=== PATIENT | female | born 1960 | race Caucasian/White ===

== ENCOUNTER 2017-01-10 19:59 | Observation (INO) | payer OTHER ==
[~2017-01-10] VITALS: Ht 167.6 cm; Wt 93.7 kg
[2017-01-10 20:08] VITALS: BP 120/49; PULSE 63; RESP 15; O2SAT 98
[2017-01-10 20:12] LABS: BASOPHILS % (AUTO) 0.7 % (0-3); EOSINOPHILS % (AUTO) 1.3 % (0-5); MONOCYTES % (AUTO) 8.2 % (4-12); Mean Corpuscular Hemoglobin 31.4 pg (27.0-35.0); Mean Corpuscular Volume 91.6 fL (81-100); NEUTROPHILS % (AUTO) 43.7 % (40-74); Platelet Count 258 bil/L (150-400)
--- NOTE | 2017-01-10 20:19 | ED.REPORT ---
HPI-Abd Pain F 40 and Over Date of Service Jan 10, 2017 ED Provider: Bhavik Morales DO A 56 year old female with a history of diabetes, hypertension and NSTEMI x2 is brought to the ED via EMS due to chest pain. 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 The pain is an intermittent, gradual onset 4/ 10 pain that is described as "sharp" and localized on the left side radiating into her left arm and midsternal area. Each episode of pain lasts less than a minute. The pt had two nitro at work and was given three more en route, in addition to aspirin. This decreased her pain to 1/10. Nursing Notes Stated Complaint: CHEST PAIN Chief Complaint: Chest Pain Nursing Notes Reviewed: Yes Allergies: Coded Allergies: ondansetron HCl (Verified Adverse Reaction, Unknown, states makes her vomit, 01/10/17) Uncoded Allergies: PENICILLIN (Allergy, Unknown, 01/10/17) General Time Seen by MD: 20:19 Chief Complaint Other (Chest pain) Hx Obtained From: Patient, EMS Arrived By: Ambulance Sudden in Onset?: No Onset Occurred: 1 - 4 hours ago Symptom Duration: Intermittent Recent Healthcare: No recent doctor visit, No recent hospitalization Similar Sx Previous: Yes Past Medical History Past Medical History NSTEMI x2 diabetes Reports: Hypertension Past Surgical History cardiac catheter Smoking History Never Smoker Ambulatory Status Independent Review of Systems Respiratory: Denies: Non-productive cough, Shortness of breath Cardiovascular: Reports: Chest pain GI: Denies: Abdominal pain, Vomiting Musculoskeletal: Reports: Extremity pain, Denies: Back pain, Neck pain Complete sys rev & neg: except as marked. Skin: Denies Rash Physical Exam Vital Signs Vital Signs (First) Date Time Temp Pulse Resp B/P Pulse Ox O2 Delivery O2 Flow Rate FiO2 01/10/17 20:08 37.0 63 15 120/49 98 Room Air Initial VS: Reviewed General/Constitutional: Awake, Alert Respiratory / Chest: Atraumatic, Breath sounds NL, Breath sounds = bilat, No respiratory distress Cardiovascular: Heart rate NL, Regular rhythm, Heart sounds NL Abdomen: Atraumatic, Soft, Non-tender Back: Atraumatic, Full range of motion Head / Eyes: Atraumatic, Normocephalic, PERRL, EOMI ENT: Atraumatic, Airway patent, Mucous membranes moist Skin: Atraumatic, Color NL, No rash, Warm, Dry Neurologic: Oriented X3, Speech NL, No motor deficits, No sensory deficits Neck: Atraumatic, Supple, Full range of motion Upper Extremity / MS: Atraumatic, Full range of motion Lower Extremity / Pelvis / MS: Atraumatic, Full range of motion Psychiatric: Affect NL, Mood NL Interpretation & Diagnostics Lab Results Interpretation Result Diagram: 01/10/17200501/10/172005 Test 01/10/17 20:06 White Blood Count 7.1th/mm3 (3.8-10.1) Red Blood Count 4.05mil/mm3 (3.90-5.20) Hemoglobin 12.7g/dL (12.0-15.6) Hematocrit 37.1% (35.0-46.0) Mean Corpuscular Volume 91.6fL (81-100) Mean Corpuscular Hemoglobin 31.4pg (27.0-35.0) Mean Corpuscular Hemoglobin Concent 34.2% (32.0-37.0) Red Cell Distribution Width 13.1% (12.3-15.4) Platelet Count 258bil/L (150-400) Neutrophils (%) (Auto) 43.7% (40-74) Lymphocytes (%) (Auto) 46.0% (14-46) Monocytes (%) (Auto) 8.2% (4-12) Eosinophils (%) (Auto) 1.3% (0-5) Basophils (%) (Auto) 0.7% (0-3) D-Dimer < 0.50mg/L FEU (<0.50) Sodium Level 138mEq/L (134-144) Potassium Level 3.7mEq/L (3.5-5.2) Chloride Level 102mEq/L (97-108) Carbon Dioxide Level 21mmol/L (18-29) Blood Urea Nitrogen 12mg/dL (6-24) Creatinine 0.65mg/dL (0.57-1.00) Estimat Glomerular Filtration Rate 136mL/min (>59) Glucose Level 176mg/dL (60-99) Calcium Level 8.9mg/dL (8.5-10.1) Magnesium Level 1.8mg/dL (1.6-2.6) Total Bilirubin 0.5mg/dL (0.0-1.2) Aspartate Amino Transf (AST/SGOT) 22U/L (0-50) Alanine Aminotransferase (ALT/SGPT) 22U/L (0-32) Alkaline Phosphatase 136U/L (25-150) Troponin T 0.010ug/L (0.0-0.011) Total Protein 7.6g/dL (6.4-8.4) Albumin 4.3g/dL (3.4-5.0) ECG Interpretation ECG Interpretation: normal sinus rhythm with a rate of 66 LVH Time: 20:11 Interpreted by: ED physician X-Ray Chest Interpretation Chest Xray Interpretation: IMPRESSION: No acute cardiopulmonary disease. Dictated by: Logan Jon M.D. on 01/10/2017 at 20:44 Approved by: Logan Jon M.D. on 01/10/2017 at 20:45 Interpretation / Wet Read by: Interpret - Radiologist Pulse Oximetry Interpretation Pulse Oximetry Interpretation: 98% on room air Pulse Oximetry: Pulse Ox normal Re-Eval/Medical Decision Med Decision/Clinical Course 56-year-old female with a history of non-STEMI 2 presents with 3 bouts of pain that are very reminiscent of her non-STEMI pain. The first couple lasted less than a minute and the third bout of pain lasted more than 5 minutes. Pain is been relieved with nitroglycerin. First troponin is negative. She will be admitted for serial troponins as evidently she ruled in after a couple of troponins when she was out at another hospital. Source of Hx: Old records Re-Evaluation/Progress : Time of Eval: 20:38 Patient Status: Condition improved Re-Evaluation/Progress Note: Pt rechecked, who is comfortable. The diagnosis and plan for admission are discussed. The pt understands and agrees with the plan. All questions are addressed at this time. Consultation : Referral / Consult Name: Julianna Horton DO Consulted With: Hospitalist Call Returned at: 22:33 Change Control Coordinator: Agrees with eval, Agrees with plan, Accepts admit Note: Spoke with Dr. Horton, hospitalist, regarding pt's case. Dr. Horton agrees with the evaluation and agrees to admit the pt. Counseled Regarding: Diagnosis, Lab results, Need for admission Discharge & Departure Primary Impression: Unstable angina Disposition: ADMITTED TO HOSPITAL Discharge Condition All VS Reviewed: Yes Condition: Stable Referrals: UMBERTO VEGA PA-C (PCP) Scribe Attestation Portions of this note were transcribed by Misha Olguin. I, Dr. Morales personally performed the history, physical exam and medical decision-making; I reviewed and confirmed the accuracy of the information in the transcribed note. copies to: UMBERTO VEGA PA-C, Todd P DO Jan 10, 2017 20:19 MISHA OLGUIN Jan 10, 2017 20:40
[2017-01-10] MEDS ORDERED: Nitroglycerin 2% 1 Gm Ointment TOPICAL ONE (20:30)
[2017-01-10] MEDS ORDERED: fentaNYL-PF 50 mCg/mL 2 mL Inj IVPUSH ONE (20:30)
[2017-01-10 20:34] LABS: TROPONIN T 0.01 ug/L (0.0-0.011)
[2017-01-10 20:45] LABS: Magnesium 1.8 mg/dL (1.6-2.6)
--- NOTE | 2017-01-10 20:47 | DRSVH ---
PROCEDURE: X-RAY CHEST ONE VIEW, PORTABLE ([id number]) INDICATIONS: 56 year-old female with chest pain. TECHNIQUE: One view of the chest was acquired. COMPARISON: [facility], , CHEST 1VW (PORTABLE), 10/29/2012, 20:10. FINDINGS: Surgical changes and devices: None. Lungs and pleura: No pleural effusions or pneumothorax. Lungs are clear. Mediastinum: Mediastinal contours appear normal. Heart size is normal. Bones and chest wall: No suspicious bony lesions. Overlying soft tissues appear unremarkable. IMPRESSION: No acute cardiopulmonary disease. Dictated by: Logan Jon M.D. on 01/10/2017 at 20:44 Approved by: Logan Jon M.D. on 01/10/2017 at 20:45
[2017-01-10] MEDS ORDERED: Senna-Docusate 8.6-50 mg Tablet PO PRN (22:45)
[2017-01-10] MEDS ORDERED: Polyethylene Glycol (PEG) 17 Gm Powder PO PRN (22:45)
[2017-01-10] MEDS ORDERED: Atropine 1 mg/10 mL (Code) Syringe IVPUSH PRN (22:45)
[2017-01-10] MEDS ORDERED: Alum-Mag Hydrox-Simeth 30 mL Suspension PO PRN (22:45)
[2017-01-10 22:54] VITALS: BP 137/77; PULSE 56; RESP 19; O2SAT 97
[2017-01-10 23:09] VITALS: BP 137/77; PULSE 56; RESP 19; O2SAT 97
[2017-01-10 23:19] VITALS: BP 126/79; PULSE 56; O2SAT 97
[2017-01-11] VITALS (8 sets, daily range): BP systolic 112–147; BP diastolic 62–78; PULSE 45–54; RESP 14–18; O2SAT 95–98
[2017-01-11] MEDS: Sodium Chloride LOK Flush 10 mL Syringe IVFLUSH SCH ×3 (00:12→17:27)
[2017-01-11] MEDS: Heparin 5,000 Unit/mL Inj SUBQ SCH ×4 (00:12→17:26)
[2017-01-11] MEDS ORDERED: Glucose 40% Oral Gel 15 Gm Tube PO PRN (01:40)
--- NOTE | 2017-01-11 02:27 | PCM.HPMED ---
Subjective Date of Service Jan 10, 2017 Primary Provider: Admitting Physician: Primary Care Physician: ShabanaDoctor Attending Physician: Chief Complaint: Chest pain History of Present Illness: Katy Giraldo is a 56-year-old woman with past medical history significant for diabetes mellitus type II insulin using, hypertension, NSTEMI 2 thought to be secondary to vasospastic angina who presents via EMS to [facility] ED for chest pain. Patient states chest pain began about 1600 today while at work. Initially she describes the pain as more of a discomfort located in her left chest. It worsened over the next 2 hours and at approximately 1830 she took one tablet of nitroglycerin 30 minutes later she took another nitroglycerin both with no relief. She does note the nitroglycerin or a couple of years old. At this time she called EMS and they arrived and gave her nitroglycerin spray which immediately resolved her symptoms. She denies any ongoing chest pain at this time. Chest pain was not associated with shortness of breath, diaphoresis, nausea, vomiting, lightheadedness, or palpitations. Last time she had a similar episode was in 2010 and a cardiac catheterization was completed which showed no stent of the lesion or significant atherosclerotic disease. Diagnosis was made of vasospastic angina (Prinzmetal) . On presentation to the ED vital signs were temperature 37.0, pulse 63, respiratory rate 15 satting 98% on room air, and blood pressure 120/49. Initial labs revealed an unremarkable CBC and CMP with negative troponin and d- dimer. Patient was given nitroglycerin and fentanyl in the ED. Review of Systems: Comprehensive review of systems was conducted with the patient and found to be negative except as noted above in HPI. Allergies Coded Allergies: ondansetron HCl (Verified Adverse Reaction, Unknown, states makes her vomit, 01/10/17) Uncoded Allergies: PENICILLIN (Allergy, Unknown, 01/10/17) Home Medications Metformin 1000 mg twice a day Lantus 25 units nightly Levothyroxine Fluoxetine Omeprazole Lisinopril Atorvastatin Aspirin PMH NSTEMI 2 Prinzmetal angina Diabetes mellitus type II Hypothyroidism Papillary thyroid cancer status post thyroidectomy Surgical History Thyroidectomy Cardiac catheterization 2 no stents Family History Father - colorectal cancer Mother - diabetes mellitus type II Social History Occupation: waiter waitress Hx Alcohol Use: No Hx Substance Use: No Hx Tobacco Use: No Smoking Status: Never Smoker Living Arrangement: with Family (with father) Exam Vital Signs Vital Sign - Last Date Time Temp Pulse Resp B/P Pulse Ox O2 Delivery O2 Flow Rate FiO2 01/10/17 20:08 37.0 63 15 120/49 98 Room Air Exam General: No acute distress, well-developed, well-nourished, appropriately interactive HEENT: Normocephalic, atraumatic. External ears without defect. Pupils equal, round, and reactive to light and accommodation. Anicteric sclerae, moist conjunctivae, and no lid lag. Neck: Supple with full range of motion. No jugular venous distension. No bruits. No lymphadenopathy or thyromegaly. Cardiovascular: Regular rate and rhythm with no murmurs, rubs, or gallops appreciated Pulmonary: Clear to auscultation bilaterally with no crackles, wheezes, or rhonchi. Normal respiratory effort with no use of accessory muscles. Abdomen: Bowel tones present. Soft, nontender, nondistended. No hepatosplenomegaly or masses appreciated. Extremities: No clubbing, cyanosis, edema, or lymphadenopathy appreciated. Skin: Normal temperature, turgor, and texture; no rash, ulcers, or subcutaneous nodules appreciated. Neurological: Cranial nerves grossly intact. Normal muscle strength, tone, and bulk. Reflexes, coordination, and sensory function within normal limits. No known gait impairment. Psychiatric: Normal mood and affect. Alert and oriented to person, place, and time. Lab and Diagnostics Labs Troponin 0.010 Result Diagram: 01/10/17200501/10/172005 X-Rays, CTs and MRIs X-RAY CHEST ONE VIEW, PORTABLE ([id number]) IMPRESSION: No acute cardiopulmonary disease. Dictated by: Logan Jon M.D. on 01/10/2017 at 20:44 Approved by: Logan Jon M.D. on 01/10/2017 at 20:45 Assessment & Plan Katy Giraldo is a 56-year-old woman with past medical history significant for diabetes mellitus type II insulin using, hypertension, NSTEMI 2 thought to be secondary to vasospastic angina who presents via EMS to [facility] ED for chest pain. Probable vasospastic angina, present on admission, active. - Patient has had 2 prior episodes last one being in 2010. - Cardiac catheterization in 2010 showed no stentable lesion or atherosclerotic disease per patient. - EKG showed no ischemic changes in the ED although there was [address] elevation in lead V1 that was obtained by EMS initially. - Initial troponin 0.010, trending troponins. - Aspirin 81 mg daily. - Lisinopril 2.5 mg daily. - Continue atorvastatin. - Nitroglycerin and morphine as needed. - Day team to consider stress test. This patient has had cardiac catheterizations that have suggested vasospastic angina unclear whether this would provide meaningful information. Chronic stable conditions Diabetes mellitus type II - Continue home medication: Lantus 25 units nightly and metformin 1000 mg twice a day Hypothyroidism secondary to thyroidectomy for papillary thyroid cancer - Continue home medication once med rec is completed. Patient cannot remember dose. - TSH pending. Depression - Continue home medication: Fluoxetine 20 mg daily. GERD - Patient takes omeprazole at home will transition to pantoprazole while hospitalized. PRN Medications - Acetaminophen as needed for mild pain/fever/headache - Bowel regimen as needed - Antiemetic as needed Patient is admitted under observation status with expected length of stay less than 2 midnights due to severity of presenting symptoms, risk of adverse event, and complexity of treatment plan. Pain Evaluation: Adequate Pain Control GI Prophylaxis: Proton Pump Inhibitor VTE Prophylaxis: Sub-Q Heparin (Unfractionated) Resuscitation Status: CPR: Attempt Resuscitation Attending Statement The patient was seen and examined together with house staff on 01/10/2017 and I agree with the history, exam and plan as outlined in the note above. KEATON CHAMPAGNE DO Jan 10, 2017 22:41 Julianna Horton DO Jan 11, 2017 02:55
--- NOTE | 2017-01-11 02:32 | NUR ---
NEW ADMIT Pt arrived from the ED with no complaints of CP on assessment. Pt under observation r/t previous CP and cardiac hx. No issues noted on assessment, will continue to monitor. Pt able to ambulate, denies any discomfort, admit complete.
[2017-01-11 02:33] LABS: BASOPHILS % (AUTO) 0.5 % (0-3); EOSINOPHILS % (AUTO) 0.9 % (0-5); MONOCYTES % (AUTO) 7.1 % (4-12); Mean Corpuscular Hemoglobin 31.2 pg (27.0-35.0); Mean Corpuscular Volume 91.4 fL (81-100); NEUTROPHILS % (AUTO) 52.1 % (40-74); Platelet Count 206 bil/L (150-400)
[2017-01-11] MEDS: Pantoprazole 20 mg ER24 Tablet PO SCH ×2 (08:53→19:46)
[2017-01-11] MEDS: Insulin LISPRO 300 Unit/3 mL Inj SUBQ SCH ×4 (08:56→20:29)
--- NOTE | 2017-01-11 13:55 | CONS ---
[address] [address] CONSULTATION REPORT PATIENT: YOBANI PINA : 1960 MR#: [id number] ADMIT: 01/10/2017 JOB ID: [id number] DATE OF SERVICE: 01/11/2017 REASON FOR CARDIOLOGY CONSULT: Further evaluation of chest pain. Hospitalist team asked me to see this patient regarding chest pain. CHIEF COMPLAINT: Chest pain. PRESENT HISTORY: This 56-year-old, pleasant female, who has a history of chest pain with history of non ST-T IA is status post left heart catheterization in [place] in 2010, without any significant coronary artery disease as per the patient, details not available. History of vasospastic angina, type 2 diabetes mellitus, hyperlipidemia, hypothyroidism, papillary thyroid cancer status post thyroidectomy and iodine treatment. Got admitted because of above-mentioned chief complaint. According to the patient, yesterday she was working. Around evening time she developed chest discomfort which was pressure as well as sharp on the left side. It lasted couple of hours. On a scale of 1-10, it was six in intensity. Later on, it radiated to the left arm. She took two sublingual nitroglycerin by herself. Then EMS came and received more nitroglycerin, as well as four aspirin. She was started on nitro paste and then slowly her chest pain subsided. She has history of hot flashes. She felt some sweating but no nausea, vomiting. She felt some shortness of breath. At present, she is chest pain free. No fever, cough, expectoration or lower extremity swelling, or history of DVT or pulmonary embolism. Denies any hemoptysis. PAST MEDICAL HISTORY: History of chest pain, non ST-T IA, vasospastic angina, status post left heart catheterization in 2010 at [facility] and according to the patient, did not find any significant coronary artery disease, history of type 2 diabetes mellitus, hyperlipidemia, hypothyroidism. ALLERGIES: The patient is allergic to: 1. PENICILLIN. 2. ONDANSETRON. HOME MEDICATION: 1. Metformin 1 g twice a day. 2. Lantus 25 units nightly. 3. Levothyroxine. 4. Fluoxetine. 5. Omeprazole. 6. Lisinopril. 7. Atorvastatin. 8. Aspirin. SOCIAL HISTORY: Denies any tobacco abuse, alcohol abuse. FAMILY HISTORY: Positive for diabetes mellitus and colorectal cancer. REVIEW OF SYSTEMS: Ten-point review of systems was obtained and negative except as stated above. PHYSICAL EXAMINATION: Blood pressure 125/62, heart rate in 50s. Respiratory rate 18, oxygen saturation 98%. HEENT: No significant anemia, jaundice. Neck: No apparent JVP or carotid bruits. Chest: No obvious crepitation or rhonchi. CVS: Clinically S1, S2 normal. No S3, no S4. Very soft ejection systolic murmur at the base. Abdomen: Obese, no obvious pulsatile mass or hepatosplenomegaly. Extremities: No significant pedal edema. No calf tenderness. Vascular: No evidence of critical limb ischemia. FACILITY ADMINISTRATOR: Alert, oriented to time, place, and person. No obvious motor or sensory deficits. LABORATORIES: WBC 6.6, hemoglobin 12.7, platelets 258. D-dimer less than 0.5. Sodium 140, potassium 4.0, BUN 12, creatinine 0.63 with normal AST, ALT. Serial troponin normal. Triglycerides 167, total cholesterol 168, LDL 79, HDL 55. TSH 16.75. Blood glucose 181. X-ray chest: No acute cardiopulmonary disease. Heart size normal. In October 2012, exercise perfusion study revealed normal myocardial perfusion. EKG: EKG revealed sinus rhythm with evidence of LVH and some nonspecific ST-T changes, left axis. NM interval 176 msec. QTc 479 msec, which appears to be prolonged, and possible left atrium enlargement. ASSESSMENT AND PLAN: History of prolonged chest pain with some anginal components with known history of probably vasospastic angina, history of left heart catheterization, 2010, no significant coronary artery disease at that time, as per the patient. However, patient has ongoing coronary artery disease risk factors as well, including type 2 diabetes mellitus, hyperlipidemia. On surface electrocardiogram, there is evidence of left ventricular hypertrophy. The patient may have some ischemia due to LVH; however, at present serial troponins normal. No myocardial infarction in the hospital. At this point of time, will recommend exercise perfusion study for CAD diagnosis and risk stratification. The patient has LVH and baseline ST changes which can cause false-positive stress test. Hence, she will need imaging study. We will recommend echocardiogram to rule out any significant structural heart disease. Give her trial off vasodilators like amlodipine. Can try long-acting nitroglycerin but she gets headache. Hence, at this point of time, we are not starting her. Once the stress test done, consider starting amlodipine, at least 2.5 mg daily. Her TSH is significantly elevated. Her blood sugar is high as well. They might be contributing to increased triglycerides. Management of hypothyroidism and diabetes, I will leave up to the hospitalist team. If exercise perfusion study and echocardiogram do not show any significant abnormality, then she can be discharged home. Discussed the plan with the patient and family members. They agreed and concur. Thanks for the Cardiology consult. Total time today spent about 60 minutes.
--- NOTE | 2017-01-11 16:13 | NUR ---
Headache Patient c/o 5/10 headache unrelieved by tylenol. Patient states it is tolerable and declined any more pain meds.
[2017-01-11] MEDS ORDERED: METF500T4 PO (16:29)
[2017-01-11] MEDS ORDERED: INSU100V7 SUBQ (16:30)
[2017-01-11] MEDS ORDERED: FLUO20CA25 PO (16:30)
[2017-01-11] MEDS ORDERED: LEVO175T5 PO (16:30)
[2017-01-11] MEDS ORDERED: LISI2.5T PO (16:31)
[2017-01-11] MEDS ORDERED: ATRV10T PO (16:31)
[2017-01-11] MEDS ORDERED: OMEP20TA86 PO (16:31)
[2017-01-11] MEDS ORDERED: ASPI-973 PO (16:32)
--- NOTE | 2017-01-11 17:01 | DRSVH ---
[facility] [address] [place] [address] Echocardiogram Report Name: YOBANI PINA DStudy Date : 01/11/2017 Height: 66 in Hospital Exam Location: [facility] Weight: 211 lb Gender: Female BSA: 2.0 m2 : 1960 Age: 56 yrs BP: 125/62 mm Hg Reason For Study: Unstable Angina Ordering Physician: HOSPITALIST [facility] Performed By: Silva Gonzalez [facility] Interpretation Summary The left ventricle is mildly dilated and left ventricular systolic function is low normal with the ejection fraction visually estimated to be 50-55% with borderline global hypokinesis but no obvious focal wall motion abnormalities. Left ventricular wall thickness is at the upper limits of normal but assessment of diastolic parameters indicates normal left ventricular diastolic function and normal filling pressures. The right ventricle is not well visualized but grossly appears to be at the upper limits of normal in size with systolic function is at the lower limits of normal. Pulmonary artery pressures cannot be estimated because of the lack of a measurable TR jet velocity but the IVC suggests a right atrial pressure of 8 mm Hg. The left atrium is borderline dilated. There is no significant valvular heart disease. The patient was in sinus bradycardia with heart rates between 50-60 bpm during the exam. Procedure: A two-dimensional transthoracic echocardiogram with color flow and Doppler was performed. The study quality was technically adequate. There is no prior echocardiogram noted for this patient. The patient was in sinus bradycardia with heart rates between 50-60 bpm during the exam. Left Ventricle: The left ventricle is mildly dilated. Left ventricular wall thickness is at the upper limits of normal. Left ventricular systolic function is low normal. The ejection fraction is estimated to be 50-55%. There is borderline global hypokinesis of the left ventricle. There are no focal wall motion abnormalities. Assessment of diastolic parameters indicates normal left ventricular diastolic function and normal filling pressures. Right Ventricle: The right ventricle is not well visualized. The right ventricle is at the upper limits of normal in size. Right ventricular systolic function is at the lower limits of normal. Atria: The left atrium is borderline dilated. Right atrial size is normal. The interatrial septum is intact with no evidence for an atrial septal defect. Mitral Valve: The mitral valve leaflets appear mildly thickened, but open well. There is trace mitral regurgitation. Aortic Valve: The aortic valve is trileaflet. The aortic valve opens well. No aortic regurgitation is present. Tricuspid Valve: The tricuspid valve is normal in structure and function. There is a trace or physiologic amount of tricuspid regurgitation. Pulmonary artery pressures cannot be estimated because of the lack of a measurable TR jet velocity. Pulmonic Valve: The pulmonic valve is not well seen, but is grossly normal. There is a trace or physiologic amount of pulmonic regurgitation. There is no significant valvular heart disease. Great Vessels: The aortic root is normal size. The ascending aorta is normal in size. The IVC is dilated (diameter is greater than 2.1 cm) yet it collapses greater than 50% with a sniff. This suggests a right atrial pressure of 8 mm Hg. Pericardium/ Pleura There is no pericardial effusion. There is no pleural effusion. MMode/2D Measurements & Calculations LVIDd: 6.0 cm LVIDs: 4.1 cm LA A2 area: 21.9 cm FS: 32.0 % LA A4 area: 21.4 cm IVSd: 1.0 cm LA length (vol): 5.4 cm LVPWd: 1.2 cm LA vol: 73.1 ml LA vol index: 35.7 ml/m IVC diam: 2.4 cm RA long axis: 4.6 cm LVOT diam: 2.0 cm RA area: 14.0 cm asc Aorta Diam: 3.1 cm RA vol: 36.1 ml RA : 17.6 ml/m2 LV perea. diameter/BSA (cm/m^2): 2.9 LV sys. diameter/BSA (cm/m^2): 2.0 Doppler Measurements & Calculations Ao V2 max: 180.4 cm/sec MV E max marciano: 72.5 cm/sec Ao max P.0 mmHg MV A max marciano: 70.6 cm/sec Ao mean P.3 mmHg LVOT Max Marciano: 121.1 cm/sec MINDA(I,D): 2.2 cm sev ratio: 0.70 MV E/A: 1.0 PA V2 max: 41.0 cm/sec PA mean P.42 mmHg MV dec time: 0.18 sec Ao V2 mean: 129.3 cm/sec Ao V2 VTI: 40.9 cm MINDA(V,D): 2.1 cm2 LV V1 max P.9 mmHg PA V2 mean: 30.8 cm/sec LV V1 VTI: 28.7 cm PA pr(Accel): 10.5 mmHg MINDA indexed to BSA (cm^2/m^2): 1.1 Reading Physician:05:01 PM
--- NOTE | 2017-01-11 19:26 | PCM.PNMED ---
Subjective Date of Service Jan 11, 2017 Subjective Katy Giraldo is a 56-year-old woman with past medical history significant for diabetes mellitus type II insulin using, hypertension, NSTEMI 2 thought to be secondary to vasospastic angina who presents via EMS to [facility] ED for chest pain. Patient was seen and examined by me today. This morning, patient denies chest pain. She states that her pain resolved in the ED after she was given multiple rounds of nitroglycerin. She notes that she has a mild headache. She denies visual changes, chest pain, SOB, nausea, vomiting, abdominal pain, bowel changes and dysuria. There were no acute events overnight Exam Vital Signs Vital Sign - Last Date Time Temp Pulse Resp B/P Pulse Ox O2 Delivery O2 Flow Rate FiO2 01/11/17 16:52 36.8 53 18 122/76 96 Room Air Intake and Output 01/10/17 01/10/17 01/11/17 Cumulative From/Thru 15:00 23:00 07:00 01/10/17 20:08 - 01/11/17 06:31 Intake Total 200 ml 200 ml Output Total 750 ml 750 ml Balance -550 ml -550 ml Intake Oral 200 ml 200 ml Output Urine Total 750 ml 750 ml # Voids 1 1 Exam General: Patient is lying comfortably on bed, AAOX3, not in acute distress, cooperative and pleasant. HEENT: head normocephalic and atraumatic, PERRLA, EOMI, no scleral icterus, noninjected conjunctiva Neck: neck supple, non-tender, no lymphadenopathy, trachea midline, no JVD CV: regular rate and rhythm, s1 and s2 heard, radial pulses 2+ and equal bilaterally, no rubs, murmurs or gallops, no edema Lungs: Clear to auscultation bilaterally, no wheezes, rales or rhonchi, no increased work of breathing Abdomen: normoactive bowel sounds on 4Q, soft, non-distended, non-tender to palpation, no organomegally, Skin: warm and dry Musculoskeletal: 5/5 UE and LE strength bilaterally, full ROM bilaterally Neuro: Grossly neurologically intact, cranial nerves II through XII intact, no dyskinesia, dysmetria, or dysdiadochokinesia noted, no pronator drift, negative Romberg test, sensation intact in extremities Psych: Normal mood and affect IVs and Medications Medications Reviewed: Medications were reviewed in detail Lab and Diagnostics Result Diagram: 01/11/1722401/11/17224 X-Rays, CTs and MRIs X-RAY CHEST ONE VIEW, PORTABLE ([id number]) IMPRESSION: No acute cardiopulmonary disease. Dictated by: Logan Jon M.D. on 01/10/2017 at 20:44 Approved by: Logan Jon M.D. on 01/10/2017 at 20:45 Assessment & Plan Katy Giraldo is a 56-year-old woman with past medical history significant for diabetes mellitus type II insulin using, hypertension, NSTEMI 2 thought to be secondary to vasospastic angina who presents via EMS to [facility] ED for chest pain. Probable vasospastic angina, present on admission, active. - Patient has had 2 prior episodes last one being in 2010. - Cardiac catheterization in 2010 showed no stentable lesion or atherosclerotic disease per patient. - EKG showed no ischemic changes in the ED although there was [address] elevation in lead V1 that was obtained by EMS initially. Patient may have some ischemia due to LVH as seen on EKG - Initial troponin 0.010, trending troponins. - Aspirin 81 mg daily. - Lisinopril 2.5 mg daily. - Continue atorvastatin. - Nitroglycerin and morphine as needed. -This patient has had cardiac catheterizations that have suggested vasospastic angina -Cardiology, Dr. Willard was consulted and we appreciate his input -per recommendations of cardiology, stress test in the AM. 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 GERD - Patient takes omeprazole at home will transition to pantoprazole while hospitalized. PRN Medications - Acetaminophen as needed for mild pain/fever/headache - Bowel regimen as needed - Antiemetic as needed Disposition: Patient will undergo exercise perfusion study and Echocardiogram. If these are negative, patient is likely to discharge in the am. GI Prophylaxis: Proton Pump Inhibitor VTE Prophylaxis: Sub-Q Heparin (Unfractionated) Resuscitation Status: CPR: Attempt Resuscitation Attending Statement The patient was seen and examined together with Dr. Tobias on 01/11/2017 and I agree with the history, exam and plan as outlined in the note above. . Ml Tobias DO Jan 11, 2017 19:26 William Jonas MD Jan 12, 2017 07:59
[2017-01-11] MEDS ORDERED: Insulin GLARgine 100 Unit/mL Syringe SUBQ SCH (21:00)
[2017-01-12] MEDS: Sodium Chloride LOK Flush 10 mL Syringe IVFLUSH SCH ×2 (00:19→11:29)
[2017-01-12] MEDS: Heparin 5,000 Unit/mL Inj SUBQ SCH ×2 (00:19→11:33)
[2017-01-12 03:38] VITALS: BP 132/76; PULSE 52; RESP 16; O2SAT 94
[2017-01-12 03:59] LABS: BASOPHILS % (AUTO) 1.2 % (0-3); EOSINOPHILS % (AUTO) 1.2 % (0-5); MONOCYTES % (AUTO) 7.8 % (4-12); Mean Corpuscular Hemoglobin 30.8 pg (27.0-35.0); Mean Corpuscular Volume 91.7 fL (81-100); NEUTROPHILS % (AUTO) 41.7 % (40-74); Platelet Count 248 bil/L (150-400)
--- NOTE | 2017-01-12 05:52 | NUR ---
NPO/BS Pt was NPO after midnight for stress test in AM, BS were 207 @ HS, gave 25 units of Lantus and pt declined any sliding scale, BS 192 @ 0300.
[2017-01-12 05:56] VITALS: PULSE 52
--- NOTE | 2017-01-12 07:15 | PCM.PNMED ---
Subjective Date of Service Jan 12, 2017 Exam Vital Signs Vital Sign - Last Date Time Temp Pulse Resp B/P Pulse Ox O2 Delivery O2 Flow Rate FiO2 01/12/17 05:56 52 01/12/17 03:38 36.6 16 132/76 94 Room Air Intake and Output 01/11/17 01/11/17 01/12/17 Cumulative From/Thru 15:00 23:00 07:00 01/10/17 20:08 - 01/12/17 06:04 Intake Total 520 ml 700 ml 1420 ml Output Total 800 ml 800 ml 2350 ml Balance -280 ml -100 ml -930 ml Intake Oral 520 ml 700 ml 1420 ml Output Urine Total 800 ml 800 ml 2350 ml # Voids 1 Lab and Diagnostics Laboratory Tests Test 01/11/17 08:10 01/12/17 03:50 Troponin T 0.010ug/L (0.0-0.011) White Blood Count 5.9th/mm3 (3.8-10.1) Red Blood Count 4.35mil/mm3 (3.90-5.20) Hemoglobin 13.4g/dL (12.0-15.6) Hematocrit 39.9% (35.0-46.0) Mean Corpuscular Volume 91.7fL (81-100) Mean Corpuscular Hemoglobin 30.8pg (27.0-35.0) Mean Corpuscular Hemoglobin Concent 33.6% (32.0-37.0) Red Cell Distribution Width 13.2% (12.3-15.4) Platelet Count 248bil/L (150-400) Neutrophils (%) (Auto) 41.7% (40-74) Lymphocytes (%) (Auto) 47.9% (14-46) Monocytes (%) (Auto) 7.8% (4-12) Eosinophils (%) (Auto) 1.2% (0-5) Basophils (%) (Auto) 1.2% (0-3) Sodium Level 139mEq/L (134-144) Potassium Level 4.4mEq/L (3.5-5.2) Chloride Level 102mEq/L (97-108) Carbon Dioxide Level 25mmol/L (18-29) Blood Urea Nitrogen 12mg/dL (6-24) Creatinine 0.75mg/dL (0.57-1.00) Estimat Glomerular Filtration Rate 115mL/min (>59) Glucose Level 192mg/dL (60-99) Calcium Level 9.4mg/dL (8.5-10.1) Magnesium Level 2.0mg/dL (1.6-2.6) Total Bilirubin 0.5mg/dL (0.0-1.2) Aspartate Amino Transf (AST/SGOT) 18U/L (0-50) Alanine Aminotransferase (ALT/SGPT) 20U/L (0-32) Alkaline Phosphatase 117U/L (25-150) Total Protein 7.0g/dL (6.4-8.4) Albumin 4.0g/dL (3.4-5.0) Result Diagram: 01/12/17 03501/12/17 035 X-Rays, CTs and MRIs X-RAY CHEST ONE VIEW, PORTABLE ([id number]) IMPRESSION: No acute cardiopulmonary disease. Dictated by: Logan Jon M.D. on 01/10/2017 at 20:44 Approved by: Logan Jon M.D. on 01/10/2017 at 20:45 Cardiac Echo Impressions Echocardiogram Report Name: KATY PINA DStudy Date : 01/11/2017 Height: 66 in Hospital Exam Location: [facility] Weight: 211 lb Gender: Female BSA: 2.0 m2 : 1960 Age: 56 yrs BP: 125/62 mm Hg Reason For Study: Unstable Angina Ordering Physician: [facility] Performed By: Silva Gonzalez Referring Physician: Cruz Lamb Interpretation Summary The left ventricle is mildly dilated and left ventricular systolic function is low normal with the ejection fraction visually estimated to be 50-55% with borderline global hypokinesis but no obvious focal wall motion abnormalities. Left ventricular wall thickness is at the upper limits of normal but assessment of diastolic parameters indicates normal left ventricular diastolic function and normal filling pressures. The right ventricle is not well visualized but grossly appears to be at the upper limits of normal in size with systolic function is at the lower limits of normal. Pulmonary artery pressures cannot be estimated because of the lack of a measurable TR jet velocity but the IVC suggests a right atrial pressure of 8 mm Hg. The left atrium is borderline dilated. There is no significant valvular heart disease. The patient was in sinus bradycardia with heart rates between 50-60 bpm during the exam. Assessment & Plan Katy Pina is a 56-year-old woman with past medical history significant for diabetes mellitus type II insulin using, hypertension, NSTEMI 2 thought to be secondary to vasospastic angina who presents via EMS to [facility] ED for chest pain. Probable vasospastic angina, present on admission, active. - Patient has had 2 prior episodes last one being in 2010. - Cardiac catheterization in 2010 showed no stentable lesion or atherosclerotic disease per patient. - EKG showed no ischemic changes in the ED although there was [address] elevation in lead V1 that was obtained by EMS initially. Patient may have some ischemia due to LVH as seen on EKG - Initial troponin 0.010, trending troponins. - Aspirin 81 mg daily. - Lisinopril 2.5 mg daily. - Continue atorvastatin. - Nitroglycerin and morphine as needed. -This patient has had cardiac catheterizations that have suggested vasospastic angina -Cardiology, Dr. Willard was consulted and we appreciate his input -per recommendations of cardiology, stress test in the AM. 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 GERD - Patient takes omeprazole at home will transition to pantoprazole while hospitalized. PRN Medications - Acetaminophen as needed for mild pain/fever/headache - Bowel regimen as needed - Antiemetic as needed Disposition: Patient will undergo exercise perfusion study and Echocardiogram. If these are negative, patient is likely to discharge in the am. GI Prophylaxis: Proton Pump Inhibitor VTE Prophylaxis: Sub-Q Heparin (Unfractionated) Resuscitation Status: CPR: Attempt Resuscitation Ml Tobias DO Jan 12, 2017 07:15
[2017-01-12] MEDS: Insulin LISPRO 300 Unit/3 mL Inj SUBQ SCH ×2 (08:00→12:28)
[2017-01-12 08:54] VITALS: BP 120/74; PULSE 55; RESP 24; O2SAT 98
[2017-01-12] MEDS: Pantoprazole 20 mg ER24 Tablet PO SCH (11:29)
[2017-01-12 11:37] VITALS: PULSE 57
--- NOTE | 2017-01-12 11:58 | NUR ---
Cardiac stress test pt ordered for nuclear med cardiac stress test, pt aware. pt alert and oriented. denies chest pain or discomfort. denies SOB. pt voided and sl. pants on. pt departed unit at about 0910, telemetry informed. pt returned to unit at about 1045, telemetry reapplied by health lead. care continues.
[2017-01-12 12:26] VITALS: BP 127/76; PULSE 52; RESP 18; O2SAT 98
--- NOTE | 2017-01-12 13:05 | PCM.DIMED ---
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 You were admitted you to the hospital to rule out a heart attack. We looked at your EKG and followed lab work. We also did an echocardiogram otherwise notice an ultrasound of the heart and in addition, we also did a stress test to see how your heart functions with exertion. [employer]ice, Dr. Willard, reviewed these results and noted that there was nothing concerning. As a result, you were cleared for discharge to home. We believe that your chest pain could be related to the vasospasm that you were diagnosed with back in 2010. For this reason, we are starting you on low dose of a medication called amlodipine which can help present vasospasm of your heart blood vessels. We also talked to you about the importance of making sure that your diabetes is under control. This includes cutting down on carbohydrates. Your hemoglobin A1c was 8.6. Please discuss better blood sugar control with your primary care doctor. In addition, your TSH was elevated TSH 16.75. You may need to be on a higher dose of levothyroxine, but this will be up to the discretion of your primary care provider. Follow-up plan Please Follow up with your primary care provider, Roberto Mclean in 1-2 weeks Follow-up with PCP in: 1 week (Dr. Roberto Mclean) William Jonas MD 01/13/17 0931: Discharge Instructions Attending's Statement The patient was seen and examined together with Dr. Tobias on 01/12/2017 and I agree with the history, exam and plan as outlined in the note above. . Ml Tobias DO Jan 12, 2017 13:05 William Jonas MD Jan 13, 2017 09:31
[2017-01-12] MEDS ORDERED: AMLO5TAB2 PO (13:08)
[2017-01-12] MEDS ORDERED: ATOR20TA65 PO (13:08)
--- NOTE | 2017-01-12 13:35 | NUR ---
Discharge pt ordered for discharge home. pt agreeable. discharge instructions and medications reviewed with patient. prescriptions given to patient. pt refused use of wheelchair, pt escorted to front lobby with steady gait and all belongings at about 1335.
--- NOTE | 2017-01-12 13:35 | PCM.DC.MED ---
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 Willard Procedures XRay, CTs & MRIs X-RAY CHEST ONE VIEW, PORTABLE ([id number]) IMPRESSION: No acute cardiopulmonary disease. Dictated by: Logan Jon M.D. on 01/10/2017 at 20:44 Approved by: Logan Jon M.D. on 01/10/2017 at 20:45 Cardiac Echo Impression Echocardiogram Report Name: KATY PINA DStudy Date : 01/11/2017 Height: 66 in Hospital Exam Location: [facility] Weight: 211 lb Gender: Female BSA: 2.0 m2 : 1960 Age: 56 yrs BP: 125/62 mm Hg Reason For Study: Unstable Angina Ordering Physician: HOSPITALIST [facility] Performed By: Silva Gonzalez Referring Physician: Cruz Lamb Interpretation Summary The left ventricle is mildly dilated and left ventricular systolic function is low normal with the ejection fraction visually estimated to be 50-55% with borderline global hypokinesis but no obvious focal wall motion abnormalities. Left ventricular wall thickness is at the upper limits of normal but assessment of diastolic parameters indicates normal left ventricular diastolic function and normal filling pressures. The right ventricle is not well visualized but grossly appears to be at the upper limits of normal in size with systolic function is at the lower limits of normal. Pulmonary artery pressures cannot be estimated because of the lack of a measurable TR jet velocity but the IVC suggests a right atrial pressure of 8 mm Hg. The left atrium is borderline dilated. There is no significant valvular heart disease. The patient was in sinus bradycardia with heart rates between 50-60 bpm during the exam. Brief History Per H&P by Dr. Burger on 01/10/17: Katy Pina is a 56-year-old woman with past medical history significant for diabetes mellitus type II insulin using, hypertension, NSTEMI 2 thought to be secondary to vasospastic angina who presents via EMS to [facility] ED for chest pain. Patient states chest pain began about 1600 today while at work. Initially she describes the pain as more of a discomfort located in her left chest. It worsened over the next 2 hours and at approximately 1830 she took one tablet of nitroglycerin 30 minutes later she took another nitroglycerin both with no relief. She does note the nitroglycerin or a couple of years old. At this time she called EMS and they arrived and gave her nitroglycerin spray which immediately resolved her symptoms. She denies any ongoing chest pain at this time. Chest pain was not associated with shortness of breath, diaphoresis, nausea, vomiting, lightheadedness, or palpitations. Last time she had a similar episode was in 2010 and a cardiac catheterization was completed which showed no stent of the lesion or significant atherosclerotic disease. Diagnosis was made of vasospastic angina (Prinzmetal) . On presentation to the ED vital signs were temperature 37.0, pulse 63, respiratory rate 15 satting 98% on room air, and blood pressure 120/49. Initial labs revealed an unremarkable CBC and CMP with negative troponin and d- dimer. Patient was given nitroglycerin and fentanyl in the ED. Hospital Course Katy Pina is a 56-year-old woman with past medical history significant for diabetes mellitus type II insulin using, hypertension, NSTEMI 2 thought to be secondary to vasospastic angina who presents via EMS to [facility] ED for chest pain. Troponin negative X3. Chest pain resolved. Exercise perfusion study and Echocardiogram were reviewed by biztalk consultant Dr. Willard and cleared patient for discharge from cardiac standpoint. 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 - Cardiac catheterization in 2010 showed no stentable lesion or atherosclerotic disease per patient. - EKG showed no ischemic changes in the ED although there was [address] elevation in lead V1 that was obtained by EMS initially. Patient may have some ischemia due to LVH as seen on EKG - Initial troponin 0.010,Troponin negative X3. - Aspirin 81 mg daily. - Lisinopril 2.5 mg daily. - Continued atorvastatin. - Nitroglycerin and morphine as needed. -This patient has had cardiac catheterizations that have suggested vasospastic angina -Cardiology, Dr. Willard was consulted and we appreciate his input -Stress Test and ECHO reviewed by biztalk consultant Dr. Willard and cleared patient for discharge from cardiac standpoint. -institute amlodipine at least 2.5 mg daily after stress test -ECHO results as described above Chronic stable conditions Diabetes mellitus type II - Continued home medication: Lantus 25 units nightly -Held metformin -Lispro correctional scale instituted -Hgb A1C 8.6 -Counseled patient on low carbohydrate diet and advised her to follow up closely with PCP Hypothyroidism secondary to thyroidectomy for papillary thyroid cancer - Continued Levothyroxine - TSH 16.75 Depression - Continued home medication: Fluoxetine 20 mg daily. GERD - Patient takes omeprazole at home transitioned to pantoprazole while hospitalized. PRN Medications - Acetaminophen as needed for mild pain/fever/headache - Bowel regimen as needed - Antiemetic as needed Exam Vital Signs (Last) Date Time Temp Pulse Resp B/P Pulse Ox O2 Delivery O2 Flow Rate FiO2 01/12/17 12:26 37.2 52 18 127/76 98 Room Air Exam General: Patient is sitting comfortably on bed, AAOX3, not in acute distress, cooperative and pleasant. HEENT: head normocephalic and atraumatic, PERRLA, EOMI, no scleral icterus, noninjected conjunctiva Neck: neck supple, non-tender, no lymphadenopathy, trachea midline, no JVD CV: regular rate and rhythm, s1 and s2 heard, radial pulses 2+ and equal bilaterally, no rubs, murmurs or gallops, no edema Lungs: Clear to auscultation bilaterally, no wheezes, rales or rhonchi, no increased work of breathing Abdomen: normoactive bowel sounds on 4Q, soft, non-distended, non-tender to palpation, no organomegally, Skin: warm and dry Musculoskeletal: 5/5 UE and LE strength bilaterally, full ROM bilaterally Neuro: Grossly neurologically intact, cranial nerves II through XII intact, no dyskinesia, dysmetria, or dysdiadochokinesia noted, no pronator drift, negative Romberg test, sensation intact in extremities Psych: Normal mood and affect Test 01/10/17 20:06 01/11/17 02:25 01/11/17 08:10 01/12/17 03:50 D-Dimer < 0.50mg/L FEU (<0.50) Thyroid Stimulating Hormone (TSH) 16.750uIU/mL (0.450-4.500) Hemoglobin A1c 8.6% (4.8-5.6) Triglycerides Level 167mg/dL (0-149) Cholesterol Level 168mg/dL (100-199) LDL Cholesterol, Calculated 79.600mg/dL (0-99) VLDL Cholesterol 33.400mg/dL HDL Cholesterol 55mg/dL (>39) Cholesterol/HDL Ratio 3.05 (0.0-4.4) Troponin T 0.010ug/L (0.0-0.011) White Blood Count 5.9th/mm3 (3.8-10.1) Red Blood Count 4.35mil/mm3 (3.90-5.20) Hemoglobin 13.4g/dL (12.0-15.6) Hematocrit 39.9% (35.0-46.0) Mean Corpuscular Volume 91.7fL (81-100) Mean Corpuscular Hemoglobin 30.8pg (27.0-35.0) Mean Corpuscular Hemoglobin Concent 33.6% (32.0-37.0) Red Cell Distribution Width 13.2% (12.3-15.4) Platelet Count 248bil/L (150-400) Neutrophils (%) (Auto) 41.7% (40-74) Lymphocytes (%) (Auto) 47.9% (14-46) Monocytes (%) (Auto) 7.8% (4-12) Eosinophils (%) (Auto) 1.2% (0-5) Basophils (%) (Auto) 1.2% (0-3) Sodium Level 139mEq/L (134-144) Potassium Level 4.4mEq/L (3.5-5.2) Chloride Level 102mEq/L (97-108) Carbon Dioxide Level 25mmol/L (18-29) Blood Urea Nitrogen 12mg/dL (6-24) Creatinine 0.75mg/dL (0.57-1.00) Estimat Glomerular Filtration Rate 115mL/min (>59) Glucose Level 192mg/dL (60-99) Calcium Level 9.4mg/dL (8.5-10.1) Magnesium Level 2.0mg/dL (1.6-2.6) Total Bilirubin 0.5mg/dL (0.0-1.2) Aspartate Amino Transf (AST/SGOT) 18U/L (0-50) Alanine Aminotransferase (ALT/SGPT) 20U/L (0-32) Alkaline Phosphatase 117U/L (25-150) Total Protein 7.0g/dL (6.4-8.4) Albumin 4.0g/dL (3.4-5.0) Discharge Medications Discharge Medications Amlodipine (Amlodipine) 5 Mg Tablet 2.5 MG PO DAILY Prescribed by: Sailaja FRANKLIN Aspirin (Aspirin) 81 Mg Tablet 81 MG PO DAILY (Reported) Atorvastatin Calcium (Atorvastatin Calcium) 20 Mg Tablet 20 MG PO HS Prescribed by: Sailaja FRANKLIN Fluoxetine (Fluoxetine) 20 Mg Capsule 20 MG PO DAILY (Reported) Insulin Glargine (Lantus U100 Insulin Vial) 100 Unit/Ml Vial 25 UNIT SUBQ HS ( Reported) Levothyroxine (Levothyroxine) 175 Mcg Tablet 175 MCG PO DAILY (Reported) Lisinopril (Lisinopril) 2.5 Mg Tablet 2.5 MG PO DAILY (Reported) Metformin (Metformin) 500 Mg Tablet 1,000 MG PO BID (Reported) Omeprazole (Omeprazole) 20 Mg Tablet.dr 20 MG PO DAILY (Reported) Followup Plan Disposition: Patient will be discharged home in stable condition with close follow-up with primary care provider. Follow-up plan Please Follow up with your primary care provider, Roberto Mclean in 1-2 weeks Discharge Diet: Heart Healthy, Diabetic Discharge Activity: No restrictions Patient Instructions You presented to the emergency room because you were having chest pain. You were admitted you to the hospital to rule out a heart attack. We looked at your EKG and followed lab work. We also did an echocardiogram otherwise notice an ultrasound of the heart and in addition, we also did a stress test to see how your heart functions with exertion. [employer], Dr. Willard, reviewed these results and noted that there was nothing concerning. As a result, you were cleared for discharge to home. We believe that your chest pain could be related to the vasospasm that you were diagnosed with back in 2010. For this reason, we are starting you on low dose of a medication called amlodipine which can help present vasospasm of your heart blood vessels. We also talked to you about the importance of making sure that your diabetes is under control. This includes cutting down on carbohydrates. Your hemoglobin A1c was 8.6. Please discuss better blood sugar control with your primary care doctor. In addition, your TSH was elevated TSH 16.75. You may need to be on a higher dose of levothyroxine, but this will be up to the discretion of your primary care provider. Follow-up with PCP in: 1 week (Dr. Roberto Mclean) Time spent Greater than 30 minutes was spent in preparation of discharge with greater than 50% of that time dedicated to patient counseling and coordination of care. . Attending Statement The patient was seen and examined together with Dr. Tobias on 01/12/2017 and I agree with the history, exam and plan as outlined in the note above. . Ml Tobias DO Jan 12, 2017 13:35 William Jonas MD Jan 13, 2017 09:32
--- NOTE | 2017-01-12 15:26 | DRSVH ---
PROCEDURE: EITHER REST OR STRESS ONLY. Exercise myocardial perfusion SPECT with gated imaging and e jection fraction RADIOPHARMACEUTICAL: 22.4 mCi of Tc-99m tetrofosmin IV at peak exercise. INDICATIONS: UNSTABLE ANGINA TECHNIQUE: Radiopharmaceutical was injected at peak stress test. SPECT images were obtained, with p erfusion images in short axis, horizontal long axis, and vertical long axis views. Gated images were reviewed using [employer] software. COMPARISON: None. CARDIAC STRESS: A standard Angel treadmill exercise tolerance test was performed by the patient unde r the supervision of attending staff. The patient exercised for 7 minutes and 29 seconds; functional aerobic impairment (KERRIE) was +2%. Hemodynamic Data: There was normal blood pressure and heart response to exercise. The patient achie miguel 85% of target heart rate. Symptoms: No chest pain. The patient had some shortness of breath during peak exercise. EKG: Baseline rhythm was sinus. Some nonspecific ST-T changes. Stress EKG did not reveal any obvio us inducible ischemic changes. There were some isolated PVCs in early exercise. No obvious ventricu lar tachycardia. FINDINGS: Raw Data: There was breast shadow seen. Left Ventricular Function: LV ejection fraction during stress appeared to be 55%. I do not see any obvious wall motion abnormalities. Stress end diastolic volume 92 mL. Myocardial Perfusion: Stress supine and stress prone images were compared to each other. Stress sup ine images reveal small-size, mildly-decreased perfusion of the basal inferoseptum, which resolved du ring prone images, suggestive of tissue attenuation artifact. IMPRESSION: I will call this study likely a normal myocardial perfusion study with evidence of tissu e attenuation artifact which improved during prone images. The patient walked on a Angel protocol fo r 7 minutes and 29 seconds, achieving 10.5 METs of workload. Normal blood pressure and heart rate re sponse. No obvious chest pain. As far as the perfusion scan is concerned, this is a low-risk myocar dial perfusion scan. Dictated by: Stephanie Willard M.D. on 01/12/2017 at 13:47 Transcribed by: LISA on 01/12/2017 at 18:26 Approved by: Stephanie Willard M.D. on 01/12/2017 at 17:28
--- NOTE | 2017-01-12 15:38 | NUR ---
Social Work Note: Brief Note/Discharge Data& Assessment: EMR reviewed. Per MD in multidisciplinary rounds, pt is medically ready to discharge. ROTATIONAL MOULDING OPERATOR met with pt at bedside to confirm discharge plan and assess for any unmet needs. Katy Giraldo is a 56 year old female admitted under observation status for unstable angina on 01/10/2017. Per MD pt is medically improved and stable and ready for discharge. Pt has [facility] insurance coverage and sees Roberto Mclean MD for primary care. Pt lives in [place] with her father and is independent at baseline with all ADL's. Pt feels she is still at her baseline for ambulation and denies any concerns with her discharge. No MD orders identified. MD does not identify any concerns for pt capacity for self care. Pt denies any needs. No other discharge needs identified. Plan: Per pt is medically ready to discharge home via POV. No other discharge needs or MD orders identified. TIMOTHY Tinoco
[2017-01-12] MEDS ORDERED: .Epic Conversion Completed XX PRN (16:25)
== END 2017-01-12 13:35 | disposition home or self-care (01) ==
LOC: SED 19:59 → PCC 22:41
PROVIDERS: ADMIT Internal Medicine; ATTEND Internal Medicine
DX: R07.9 Chest pain, unspecified (principal); E11.9 Type 2 diabetes mellitus without complications; E89.0 Postprocedural hypothyroidism; K21.9 Gastro-esophageal reflux disease without esophagitis; F32.9 Major depressive disorder, single episode, unspecified; E78.5 Hyperlipidemia, unspecified; Z79.84 Long term (current) use of oral hypoglycemic drugs; Z79.4 Long term (current) use of insulin; I25.2 Old myocardial infarction; Z85.850 Personal history of malignant neoplasm of thyroid
CPT/HCPCS: 36415; 71010; 78451; 80048; 80053; 80061; 83036; 83735; 84443; 84484; 85025; 85378; 93005; 93017; 96372; 96374; 99283; A9502; C8929; G0378; J1644; J1815; J3010